=== PATIENT | female | born 1940 | race Caucasian/White ===

== ENCOUNTER 2017-12-29 04:13 | Inpatient (IN) | payer OTHER ==
[2017-12-28 15:19] LABS: BASOPHILS # (AUTO) 0.05 x10^3/uL (0-0.1); BASOPHILS % (AUTO) 1 % (0-1); EOSINOPHILS % (AUTO) 2 % (1-7); LYMPHOCYTES # (AUTO) 2.49 x10^3/uL (1-3.4); LYMPHOCYTES % (AUTO) 23 % (22-44); MD NO; MEAN CORPUSCULAR HEMOGLOBIN 27.5 pg (27.0-34.8); MEAN CORPUSCULAR HGB CONC 32.7 g/dL (32.4-35.8); MEAN CORPUSCULAR VOLUME 83.9 fL (80-100); MEAN PLATELET VOLUME 8.8 fL (7.4-10.4); MONOCYTES # (AUTO) 0.61 x10^3/uL (0.2-0.8); MONOCYTES % (AUTO) 6 % (2-9); NEUTROPHILS # (AUTO) 7.53 x10^3/uL (1.8-6.8); NEUTROPHILS % (AUTO) 69 % (42-75); PLATELET COUNT 303 x10^3/uL (130-400); RED BLOOD COUNT 4.57 x10^6/uL (3.82-5.3); RED CELL DISTRIBUTION WIDTH 14.7 % (9.6-15.2)
[2017-12-28 15:21] LABS: MICROSCOPIC INDICATED
[2017-12-28 15:31] LABS: INTERNATIONAL NORMALIZED RATIO 0.98 (0.93-1.1); PROTHROMBIN TIME 10.1 Seconds (9.6-11.5)
[2017-12-28 15:35] LABS: ALANINE AMINOTRANSFERASE 17 U/L (12-78); ALBUMIN 3.8 g/dL (3.4-5.0); ANION GAP 12 mmol/L (5-15); CALCIUM 9.2 mg/dL (8.5-10.1); CHLORIDE 109 mmol/L (98-107); CREATININE 1.14 mg/dL (0.55-1.02)
[2017-12-28 15:38] LABS: ALKALINE PHOSPHATASE 78 U/L (45-117); BILIRUBIN,TOTAL 0.3 mg/dL (0.2-1.0); TOTAL PROTEIN 7.4 g/dL (6.4-8.2)
[2017-12-28 15:54] LABS: HEMOGLOBIN A1C 9.8 % (4.2-6.3)
[~2017-12-29] VITALS: Ht 170.2 cm; Wt 87.9 kg
[~2017-12-29 04:13] MED LIST: AMLO10TA2 PO; ASPI-496 PO; DOXA2TAB9 PO; FERR325T18 PO; FLUO10TA PO; GINK60TA4 PO; GLIP-164 PO; INSU100I13 SC; METF500T4 PO; OMEG1CAP30 PO; OMEP-110 PO; ROSU40TA PO; VALS1TAB30 PO; VIT1TABL32 PO
[2017-12-29 04:48] VITALS: BP 162/73
[2017-12-29 04:49] VITALS: BP 156/75
[2017-12-29] MEDS ORDERED: DO NOT GIVE MC SCH (05:00)
[2017-12-29] MEDS ORDERED: CHLORHEXIDINE 15 ML BOTTLE MM SCH (05:00)
[2017-12-29] MEDS: MUPIROCIN OINT 2%, 22GM TP SCH ×2 (05:26→17:39)
[2017-12-29] MEDS: INSULIN LISPRO 100 UNITS/ML, PEN SQ-INSULIN SCH ×4 (05:31→21:00)
[2017-12-29] MEDS ORDERED: MIDAZOLAM 10MG/2 ML ONE (06:34)
[2017-12-29] MEDS ORDERED: FENTANYL PF 1000 MCG/20ML ONE (06:40)
[2017-12-29] MEDS ORDERED: PAPAVERINE 30 MG/ML, 2ML ONE (07:21)
[2017-12-29] MEDS ORDERED: HEPARIN 1,000 UNITS/ML, 10ML ONE (07:22)
[2017-12-29] MEDS ORDERED: CEFUROXIME 1.5 GM in SODIUM CHLORIDE 0.9% 50 ML IVPB PRN (07:30)
[2017-12-29] MEDS ORDERED: PHENYLEPHRINE 10 MG in SODIUM CHLORIDE 0.9% 249 ML IV PRN ×2 (07:30→10:28)
[2017-12-29] MEDS ORDERED: REGULAR INSULIN 62.5 UNITS in SODIUM CHLORIDE 0.9% 249.375 ML IV PRN ×2 (07:30→10:28)
[2017-12-29] MEDS ORDERED: DEXMEDETOMIDINE 200 MCG in SODIUM CHLORIDE 0.9% 48 ML IV SCH (07:30)
[2017-12-29] MEDS ORDERED: VANCOMYCIN 1,200 MG in SODIUM CHLORIDE 0.9% 250 ML IV PRN (07:30)
[2017-12-29] MEDS ORDERED: ALBUMIN HUMAN 5% 500 ML IV PRN (07:30)
[2017-12-29] MEDS ORDERED: MANNITOL PMX 20% 500 ML IVPB PRN (07:30)
[2017-12-29] MEDS ORDERED: POTASSIUM CHLORIDE 80 MEQ, SODIUM BICARBONATE 8.4% 10 MEQ, MAGNESIUM SULFATE 0.5 GM, LI... IV PRN (07:30)
[2017-12-29] MEDS ORDERED: EPINEPHRINE 2 MG in SODIUM CHLORIDE 0.9% 248 ML IV SCH (07:30)
[2017-12-29] MEDS ORDERED: PAPAVERINE 30 MG/ML, 2ML IVPush ONE (08:39)
[2017-12-29] MEDS: DOCUSATE 100 MG CAPSULE PO SCH ×2 (09:00→21:11)
[2017-12-29] MEDS ORDERED: PROPOFOL 10 MG/ML, 20ML ONE (09:04)
[2017-12-29] MEDS ORDERED: ROCURONIUM 10 MG/ML,10ML ONE (09:04)
[2017-12-29] MEDS ORDERED: PROTAMINE SULFATE 10 MG/ML, 25ML ONE ×2 (09:05)
[2017-12-29] MEDS ORDERED: VASOPRESSIN 20 UNIT/ML, 1ML ONE (09:05)
[2017-12-29] MEDS ORDERED: CALCIUM CHLORIDE 10%, 10ML SYR ONE (10:23)
[2017-12-29] MEDS ORDERED: NITROGLYCERIN/D5W PMX 240 ML IV PRN (10:28)
[2017-12-29] MEDS ORDERED: DEXMEDETOMIDINE 200 MCG in SODIUM CHLORIDE 0.9% 48 ML IV PRN (10:28)
[2017-12-29] MEDS ORDERED: SODIUM CHLORIDE 0.9% 1,000 ML IV PRN (10:28)
[2017-12-29] MEDS ORDERED: DOBUTAMINE 250 MG in SODIUM CHLORIDE 0.9% 230 ML IV PRN (10:28)
[2017-12-29] MEDS ORDERED: VASOPRESSIN 50 UNIT in SODIUM CHLORIDE 0.9% 250 ML IV PRN (10:28)
[2017-12-29] MEDS ORDERED: BISACODYL 10 MG SUPP PR PRN (10:30)
[2017-12-29] MEDS ORDERED: BISACODYL 5 MG EC TABLET PO PRN (10:30)
[2017-12-29] MEDS ORDERED: ACETAMINOPHEN 650 MG SUPP PR PRN (10:30)
[2017-12-29] MEDS: KSCALE TO 4.5 IV SCH ×3 (10:30→23:00)
[2017-12-29] MEDS ORDERED: EPINEPHRINE 2 MG in SODIUM CHLORIDE 0.9% 248 ML IV PRN (10:30)
[2017-12-29] MEDS ORDERED: PROCHLORPERAZINE 5 MG/ML, 2ML IVPush PRN (10:30)
[2017-12-29] MEDS ORDERED: MIDAZOLAM 1 MG/ML, 5ML IVPush PRN (10:30)
[2017-12-29] MEDS ORDERED: LACTATED RINGERS 1,000 ML IV PRN (10:30)
[2017-12-29] MEDS ORDERED: INSULIN REGULAR 100 UNITS/ML, 3ML VIAL IVPush PRN (10:30)
[2017-12-29] MEDS: CHLORHEXIDINE 15 ML BOTTLE MM SCH ×2 (10:30→21:07)
[2017-12-29] MEDS ORDERED: DEXTROSE 50%, 50ML SYRINGE IVPush PRN (10:30)
[2017-12-29] MEDS ORDERED: GLUCAGON 1 MG IM PRN (10:30)
[2017-12-29] MEDS ORDERED: morphine SULFATE 10 MG/ML, 1ML IVPush PRN (10:30)
[2017-12-29 11:12] LABS: GLUCOSE BY BLOOD GAS ANALYZER 222 mg/dL (70-110); HEMOGLOBIN BY BLOOD GAS ANALYZ 9.4 g/dL (14.0-18.0); POTASSIUM BY BLOOD GAS ANALYZR 3.7 mmol/L (3.6-5.5)
[2017-12-29 11:20] LABS: INTERNATIONAL NORMALIZED RATIO 1.22 (0.93-1.1); PROTHROMBIN TIME 12.5 Seconds (9.6-11.5)
[2017-12-29] MEDS: SODIUM BICARB 8.4%, 50ML SYRINGE IV PRN ×2 (11:34→13:22)
[2017-12-29] MEDS ORDERED: POTASSIUM CHLORIDE PMX 100 ML IV ONE (12:30)
[2017-12-29] MEDS ORDERED: MORPHINE SULFATE 4 MG/ML, 1ML ONE (12:53)
[2017-12-29 13:15] LABS: FIO2 100 %
[2017-12-29] MEDS ORDERED: methylPREDNISolone SOD SUCC 125 MG/2 ML ONE (14:54)
[2017-12-29] MEDS ORDERED: LIDOCAINE 2% 100MG/5ML SYRINGE ONE (14:54)
[2017-12-29] MEDS ORDERED: SODIUM BICARB 8.4%, 50ML SYRINGE ONE (14:54)
[2017-12-29] MEDS ORDERED: HEPARIN 1,000 UNITS/ML, 30ML ONE (14:55)
[2017-12-29] MEDS ORDERED: ALBUMIN HUMAN 25% 50 ML ONE (14:55)
[2017-12-29] MEDS: OXYcodone IR 5MG TABLET PO PRN ×2 (17:20→21:15)
[2017-12-29] MEDS: ONDANSETRON 2MG/ML, 2ML IVPush PRN (17:20)
[2017-12-29] MEDS: CEFUROXIME 1.5 GM in SODIUM CHLORIDE 0.9% 50 ML IVPB SCH (17:26)
[2017-12-29] MEDS: SODIUM CHLORIDE FLUSH 10ML SYR IVF SCH ×3 (18:22→21:07)
[2017-12-29] MEDS ORDERED: VANCOMYCIN 1,200 MG in SODIUM CHLORIDE 0.9% 250 ML IVPB ONE (20:00)
[2017-12-29] MEDS: MUPIROCIN OINT 2%, 22GM NAS SCH (21:07)
[2017-12-30] MEDS: OXYcodone IR 5MG TABLET PO PRN (03:16)
[2017-12-30 04:41] LABS: BASOPHILS % (AUTO) 0 % (0-1); EOSINOPHILS % (AUTO) 0 % (1-7); LYMPHOCYTES # (AUTO) 0.81 x10^3/uL (1-3.4); LYMPHOCYTES % (AUTO) 5 % (22-44); MD NO; MEAN CORPUSCULAR HEMOGLOBIN 27.6 pg (27.0-34.8); MEAN CORPUSCULAR HGB CONC 32.7 g/dL (32.4-35.8); MEAN CORPUSCULAR VOLUME 84.3 fL (80-100); MEAN PLATELET VOLUME 9.6 fL (7.4-10.4); MONOCYTES # (AUTO) 1.25 x10^3/uL (0.2-0.8); MONOCYTES % (AUTO) 7 % (2-9); NEUTROPHILS # (AUTO) 14.77 x10^3/uL (1.8-6.8); NEUTROPHILS % (AUTO) 88 % (42-75); PLATELET COUNT 193 x10^3/uL (130-400); RED BLOOD COUNT 3.31 x10^6/uL (3.82-5.3)
[2017-12-30 04:43] LABS: INTERNATIONAL NORMALIZED RATIO 1.05 (0.93-1.1); PROTHROMBIN TIME 10.8 Seconds (9.6-11.5)
[2017-12-30 04:48] LABS: ALBUMIN 3.1 g/dL (3.4-5.0); ANION GAP 10 mmol/L (5-15); CALCIUM 8.7 mg/dL (8.5-10.1); CHLORIDE 109 mmol/L (98-107)
[2017-12-30 04:49] LABS: CREATININE 1.16 mg/dL (0.55-1.02)
[2017-12-30] MEDS: KSCALE TO 4.5 IV SCH (05:00)
[2017-12-30] MEDS: INSULIN LISPRO 100 UNITS/ML, PEN SQ-INSULIN SCH ×6 (06:20→21:22)
[2017-12-30] MEDS: CEFUROXIME 1.5 GM in SODIUM CHLORIDE 0.9% 50 ML IVPB SCH (06:21)
[2017-12-30] MEDS: MUPIROCIN OINT 2%, 22GM TP SCH ×2 (06:21→19:13)
[2017-12-30] MEDS: POTASSIUM CHLORIDE 10 MEQ TABLET.ER PO SCH ×2 (08:00→17:20)
[2017-12-30] MEDS: SODIUM CHLORIDE FLUSH 10ML SYR IVF SCH ×4 (08:17→19:13)
[2017-12-30] MEDS: HYDROcodone/APAP 5/325 TABLET PO PRN (08:17)
[2017-12-30] MEDS: FUROSEMIDE 20 MG/2 ML IV SCH ×2 (08:17→17:20)
[2017-12-30] MEDS: MUPIROCIN OINT 2%, 22GM NAS SCH ×2 (08:17→19:13)
[2017-12-30] MEDS: CHLORHEXIDINE 15 ML BOTTLE MM SCH ×2 (08:18→23:09)
[2017-12-30] MEDS: WARFARIN BIOPROSTHETIC VALVE PROTOCOL 2-3 XX SCH (09:00)
[2017-12-30] MEDS: DOCUSATE 100 MG CAPSULE PO SCH ×3 (09:00→19:15)
[2017-12-30] MEDS: ASPIRIN 81 MG TABLET EC PO SCH (09:30)
[2017-12-30] MEDS: AMLODIPINE 5 MG TABLET PO SCH (10:23)
[2017-12-30] MEDS: CEFTRIAXONE PMX 1GM/50ML 50 ML IV SCH (10:23)
[2017-12-30] MEDS: INSULIN GLARGINE 100 UNITS/ML, PEN SQ-INSULIN SCH ×2 (10:24→21:21)
[2017-12-30 12:47] LABS: MICROSCOPIC INDICATED
[2017-12-30] MEDS: HYDROcodone/APAP 10/325 MG TABLET PO PRN ×2 (13:22→19:13)
[2017-12-30] MEDS ORDERED: WARFARIN 5 MG TABLET PO-COUM SCH (18:00)
[2017-12-31] MEDS: HYDROcodone/APAP 10/325 MG TABLET PO PRN ×2 (00:21→20:53)
[2017-12-31 04:35] LABS: MEAN CORPUSCULAR HEMOGLOBIN 27.8 pg (27.0-34.8); MEAN CORPUSCULAR HGB CONC 32.9 g/dL (32.4-35.8); MEAN CORPUSCULAR VOLUME 84.4 fL (80-100); MEAN PLATELET VOLUME 9.1 fL (7.4-10.4); PLATELET COUNT 221 x10^3/uL (130-400); RED BLOOD COUNT 3.44 x10^6/uL (3.82-5.3); RED CELL DISTRIBUTION WIDTH 15.8 % (9.6-15.2)
[2017-12-31 04:40] LABS: INTERNATIONAL NORMALIZED RATIO 0.97 (0.93-1.1)
[2017-12-31 04:46] LABS: ANION GAP 10 mmol/L (5-15); CALCIUM 8.5 mg/dL (8.5-10.1); CHLORIDE 101 mmol/L (98-107); CREATININE 1.38 mg/dL (0.55-1.02)
[2017-12-31 04:58] LABS: BASOPHILS # (AUTO) 0.04 x10^3/uL (0-0.1); BASOPHILS % (AUTO) 0 % (0-1); EOSINOPHILS % (AUTO) 0 % (1-7); LYMPHOCYTES # (AUTO) 1.79 x10^3/uL (1-3.4); LYMPHOCYTES % (AUTO) 9 % (22-44); MD SCAN; MONOCYTES # (AUTO) 1.56 x10^3/uL (0.2-0.8); MONOCYTES % (AUTO) 8 % (2-9); NEUTROPHILS # (AUTO) 15.59 x10^3/uL (1.8-6.8); NEUTROPHILS % (AUTO) 82 % (42-75)
[2017-12-31] MEDS: HYDROcodone/APAP 5/325 TABLET PO PRN ×4 (05:21→17:32)
[2017-12-31] MEDS: MUPIROCIN OINT 2%, 22GM TP SCH (05:21)
[2017-12-31] MEDS: INSULIN LISPRO 100 UNITS/ML, PEN SQ-INSULIN SCH ×4 (08:21→21:02)
[2017-12-31] MEDS: WARFARIN BIOPROSTHETIC VALVE PROTOCOL 2-3 XX SCH (09:00)
[2017-12-31] MEDS: ASPIRIN 81 MG TABLET EC PO SCH (09:42)
[2017-12-31] MEDS: POTASSIUM CHLORIDE 10 MEQ TABLET.ER PO SCH ×2 (09:42→17:45)
[2017-12-31] MEDS: DOCUSATE 100 MG CAPSULE PO SCH ×2 (09:42→20:52)
[2017-12-31] MEDS: MUPIROCIN OINT 2%, 22GM NAS SCH ×2 (09:43→20:53)
[2017-12-31] MEDS: AMLODIPINE 5 MG TABLET PO SCH (09:43)
[2017-12-31] MEDS: CEFTRIAXONE PMX 1GM/50ML 50 ML IV SCH (09:43)
[2017-12-31] MEDS: SODIUM CHLORIDE FLUSH 10ML SYR IVF SCH ×2 (09:44→20:53)
[2017-12-31] MEDS: FUROSEMIDE 20 MG/2 ML IV SCH ×2 (09:45→17:31)
[2017-12-31] MEDS: INSULIN GLARGINE 100 UNITS/ML, PEN SQ-INSULIN SCH ×2 (09:46→21:02)
[2017-12-31] MEDS: CHLORHEXIDINE 15 ML BOTTLE MM SCH ×2 (12:06→22:30)
[2017-12-31] MEDS: ACETAMINOPHEN 325 MG TABLET PO PRN (17:32)
[2017-12-31] MEDS ORDERED: WARFARIN 5 MG TABLET PO-COUM ONE (18:00)
[2018-01-01 04:00] VITALS: BP 131/40
[2018-01-01] MEDS: HYDROcodone/APAP 10/325 MG TABLET PO PRN ×2 (04:19→21:13)
[2018-01-01 05:43] LABS: BASOPHILS # (AUTO) 0.08 x10^3/uL (0-0.1); BASOPHILS % (AUTO) 1 % (0-1); EOSINOPHILS # (AUTO) 0.07 x10^3/uL (0-0.4); EOSINOPHILS % (AUTO) 1 % (1-7); LYMPHOCYTES # (AUTO) 1.24 x10^3/uL (1-3.4); LYMPHOCYTES % (AUTO) 10 % (22-44); MD NO; MEAN CORPUSCULAR HGB CONC 33.4 g/dL (32.4-35.8); MEAN CORPUSCULAR VOLUME 83.7 fL (80-100); MEAN PLATELET VOLUME 9.2 fL (7.4-10.4); MONOCYTES # (AUTO) 1.19 x10^3/uL (0.2-0.8); MONOCYTES % (AUTO) 10 % (2-9); NEUTROPHILS % (AUTO) 79 % (42-75); PLATELET COUNT 201 x10^3/uL (130-400); RED BLOOD COUNT 3.16 x10^6/uL (3.82-5.3); RED CELL DISTRIBUTION WIDTH 15.3 % (9.6-15.2)
[2018-01-01 05:52] LABS: CHLORIDE 103 mmol/L (98-107)
[2018-01-01 05:58] LABS: INTERNATIONAL NORMALIZED RATIO 1.17 (0.93-1.1)
[2018-01-01 06:11] LABS: ANION GAP 8 mmol/L (5-15); CALCIUM 8.8 mg/dL (8.5-10.1); CREATININE 0.95 mg/dL (0.55-1.02)
[2018-01-01] MEDS: INSULIN LISPRO 100 UNITS/ML, PEN SQ-INSULIN SCH ×4 (07:00→21:23)
[2018-01-01] MEDS: AMIODARONE 900 MG in DEXTROSE 5% 482 ML IV PRN (08:58)
[2018-01-01] MEDS: INSULIN GLARGINE 100 UNITS/ML, PEN SQ-INSULIN SCH ×4 (09:00→21:24)
[2018-01-01] MEDS ORDERED: AMIODARONE 150 MG in DEXTROSE 5% 100 ML IV ONE (09:00)
[2018-01-01] MEDS ORDERED: FILTER 0.22 MICRON FOR AMIODARONE IV PRN (09:00)
[2018-01-01] MEDS ORDERED: AMLODIPINE 5 MG TABLET PO SCH (09:00)
[2018-01-01] MEDS ORDERED: GLIPizide ER 5 MG TABLET PO SCH (09:00)
[2018-01-01] MEDS: WARFARIN BIOPROSTHETIC VALVE PROTOCOL 2-3 XX SCH (09:00)
[2018-01-01] MEDS ORDERED: ASPIRIN 81 MG TABLET EC PO SCH (09:00)
[2018-01-01] MEDS: VALSARTAN 80 MG TABLET PO SCH (09:03)
[2018-01-01] MEDS: DOCUSATE 100 MG CAPSULE PO SCH ×2 (09:03→21:13)
[2018-01-01] MEDS: OMEPRAZOLE 20 MG CAPSULE.DR PO SCH ×2 (09:03→21:13)
[2018-01-01] MEDS: POTASSIUM CHLORIDE 10 MEQ TABLET.ER PO SCH (09:04)
[2018-01-01] MEDS: ASPIRIN 81 MG TABLET EC PO SCH (09:04)
[2018-01-01] MEDS: CHLORHEXIDINE 15 ML BOTTLE MM SCH ×2 (09:04→22:30)
[2018-01-01] MEDS: MUPIROCIN OINT 2%, 22GM NAS SCH ×2 (09:04→21:13)
[2018-01-01] MEDS: FUROSEMIDE 20 MG/2 ML IV SCH (09:05)
[2018-01-01] MEDS: CEFTRIAXONE PMX 1GM/50ML 50 ML IV SCH (09:05)
[2018-01-01] MEDS: AMLODIPINE 5 MG TABLET PO SCH (09:05)
[2018-01-01] MEDS: FERROUS SULFATE 325 MG TABLET PO SCH (09:05)
[2018-01-01] MEDS: DOXAZOSIN 2MG TABLET PO SCH (09:05)
[2018-01-01] MEDS: SODIUM CHLORIDE FLUSH 10ML SYR IVF SCH ×2 (09:06→21:13)
[2018-01-01] MEDS: HYDROcodone/APAP 5/325 TABLET PO PRN ×2 (09:23→16:51)
[2018-01-01] MEDS: FLUOXETINE 10 MG CAP PO SCH (11:26)
[2018-01-01] MEDS: metFORMIN 500 MG TABLET PO SCH ×2 (11:26→21:13)
[2018-01-01] MEDS ORDERED: WARFARIN 7.5 MG TABLET PO-COUM ONE (18:00)
[2018-01-01] MEDS: TEMPLATE NON-FORMULARY MED. (Rosuvastatin Calcium** (Crestor**) 40 MG) PO SCH (21:00)
[2018-01-02 04:00] VITALS: BP 114/47
[2018-01-02 04:19] LABS: BASOPHILS # (AUTO) 0.12 x10^3/uL (0-0.1); BASOPHILS % (AUTO) 1 % (0-1); EOSINOPHILS # (AUTO) 0.17 x10^3/uL (0-0.4); EOSINOPHILS % (AUTO) 2 % (1-7); LYMPHOCYTES % (AUTO) 11 % (22-44); MD NO; MEAN CORPUSCULAR HEMOGLOBIN 27.3 pg (27.0-34.8); MEAN CORPUSCULAR HGB CONC 32.9 g/dL (32.4-35.8); MEAN CORPUSCULAR VOLUME 83.1 fL (80-100); MEAN PLATELET VOLUME 9.1 fL (7.4-10.4); MONOCYTES # (AUTO) 1.05 x10^3/uL (0.2-0.8); MONOCYTES % (AUTO) 9 % (2-9); NEUTROPHILS # (AUTO) 8.97 x10^3/uL (1.8-6.8); NEUTROPHILS % (AUTO) 77 % (42-75); PLATELET COUNT 224 x10^3/uL (130-400); RED BLOOD COUNT 3.05 x10^6/uL (3.82-5.3); RED CELL DISTRIBUTION WIDTH 14.8 % (9.6-15.2)
[2018-01-02 04:27] LABS: INTERNATIONAL NORMALIZED RATIO 1.24 (0.93-1.1); PROTHROMBIN TIME 12.7 Seconds (9.6-11.5)
[2018-01-02 04:31] LABS: ANION GAP 8 mmol/L (5-15); CALCIUM 8.3 mg/dL (8.5-10.1); CHLORIDE 102 mmol/L (98-107); CREATININE 1.19 mg/dL (0.55-1.02)
[2018-01-02] MEDS: HYDROcodone/APAP 5/325 TABLET PO PRN (07:23)
[2018-01-02] MEDS: INSULIN LISPRO 100 UNITS/ML, PEN SQ-INSULIN SCH ×4 (07:33→21:00)
[2018-01-02] MEDS: AMIODARONE 900 MG in DEXTROSE 5% 482 ML IV PRN (07:46)
[2018-01-02] MEDS ORDERED: AMIODARONE 150 MG in DEXTROSE 5% 100 ML IV ONE (08:00)
[2018-01-02] MEDS: WARFARIN BIOPROSTHETIC VALVE PROTOCOL 2-3 XX SCH (09:00)
[2018-01-02] MEDS: VALSARTAN 80 MG TABLET PO SCH (09:00)
[2018-01-02] MEDS: DOCUSATE 100 MG CAPSULE PO SCH ×2 (09:57→21:15)
[2018-01-02] MEDS: FERROUS SULFATE 325 MG TABLET PO SCH (09:57)
[2018-01-02] MEDS: POTASSIUM CHLORIDE 10 MEQ TABLET.ER PO SCH (09:57)
[2018-01-02] MEDS: FUROSEMIDE 20 MG/2 ML IV SCH (09:58)
[2018-01-02] MEDS: OMEPRAZOLE 20 MG CAPSULE.DR PO SCH ×2 (09:58→21:15)
[2018-01-02] MEDS: DOXAZOSIN 2MG TABLET PO SCH (09:58)
[2018-01-02] MEDS: metFORMIN 500 MG TABLET PO SCH ×2 (09:58→21:15)
[2018-01-02] MEDS: CEFTRIAXONE PMX 1GM/50ML 50 ML IV SCH (10:00)
[2018-01-02] MEDS: MUPIROCIN OINT 2%, 22GM NAS SCH ×2 (10:00→21:15)
[2018-01-02] MEDS: INSULIN GLARGINE 100 UNITS/ML, PEN SQ-INSULIN SCH ×3 (10:01→21:24)
[2018-01-02] MEDS: SODIUM CHLORIDE FLUSH 10ML SYR IVF SCH ×2 (10:01→21:15)
[2018-01-02] MEDS: ASPIRIN 81 MG TABLET EC PO SCH (10:14)
[2018-01-02] MEDS: CHLORHEXIDINE 15 ML BOTTLE MM SCH ×2 (10:30→22:54)
[2018-01-02] MEDS: ONDANSETRON 2MG/ML, 2ML IVPush PRN (11:04)
[2018-01-02] MEDS ORDERED: WARFARIN 10 MG TABLET PO-COUM ONE (18:00)
[2018-01-02] MEDS: TEMPLATE NON-FORMULARY MED. (Rosuvastatin Calcium** (Crestor**) 40 MG) PO SCH (21:00)
[2018-01-02] MEDS: HYDROcodone/APAP 10/325 MG TABLET PO PRN (21:15)
[2018-01-02] MEDS: FLUOXETINE 10 MG CAP PO SCH (21:17)
[2018-01-03 04:00] VITALS: BP 144/47
[2018-01-03 04:51] LABS: INTERNATIONAL NORMALIZED RATIO 1.94 (0.93-1.1); PROTHROMBIN TIME 19.7 Seconds (9.6-11.5)
[2018-01-03 04:55] LABS: MEAN CORPUSCULAR HEMOGLOBIN 27.8 pg (27.0-34.8); MEAN CORPUSCULAR HGB CONC 33.6 g/dL (32.4-35.8); MEAN CORPUSCULAR VOLUME 82.8 fL (80-100); MEAN PLATELET VOLUME 9.2 fL (7.4-10.4); PLATELET COUNT 266 x10^3/uL (130-400); RED BLOOD COUNT 3.06 x10^6/uL (3.82-5.3); RED CELL DISTRIBUTION WIDTH 14.8 % (9.6-15.2)
[2018-01-03 04:56] LABS: ANION GAP 10 mmol/L (5-15); CALCIUM 8.1 mg/dL (8.5-10.1); CHLORIDE 99 mmol/L (98-107)
[2018-01-03 04:58] LABS: CREATININE 1.23 mg/dL (0.55-1.02)
[2018-01-03 06:04] LABS: BASOPHILS # (AUTO) 0.04 x10^3/uL (0-0.1); BASOPHILS % (AUTO) 0 % (0-1); EOSINOPHILS # (AUTO) 0.28 x10^3/uL (0-0.4); EOSINOPHILS % (AUTO) 2 % (1-7); LYMPHOCYTES # (AUTO) 1.32 x10^3/uL (1-3.4); LYMPHOCYTES % (AUTO) 11 % (22-44); MD SCAN; MONOCYTES # (AUTO) 1.18 x10^3/uL (0.2-0.8); MONOCYTES % (AUTO) 10 % (2-9); NEUTROPHILS % (AUTO) 76 % (42-75)
[2018-01-03] MEDS: INSULIN LISPRO 100 UNITS/ML, PEN SQ-INSULIN SCH ×4 (07:00→21:00)
[2018-01-03] MEDS: ASPIRIN 81 MG TABLET EC PO SCH (08:45)
[2018-01-03] MEDS: FLUOXETINE 10 MG CAP PO SCH (08:45)
[2018-01-03] MEDS: OMEPRAZOLE 20 MG CAPSULE.DR PO SCH ×2 (08:45→21:38)
[2018-01-03] MEDS: metFORMIN 500 MG TABLET PO SCH ×2 (08:45→21:38)
[2018-01-03] MEDS: HYDROcodone/APAP 5/325 TABLET PO PRN (08:45)
[2018-01-03] MEDS: FERROUS SULFATE 325 MG TABLET PO SCH (08:46)
[2018-01-03] MEDS: VALSARTAN 80 MG TABLET PO SCH (08:46)
[2018-01-03] MEDS: POTASSIUM CHLORIDE 10 MEQ TABLET.ER PO SCH (08:46)
[2018-01-03] MEDS: AMLODIPINE 5 MG TABLET PO SCH (08:46)
[2018-01-03] MEDS: DOCUSATE 100 MG CAPSULE PO SCH ×2 (08:46→21:38)
[2018-01-03] MEDS: FUROSEMIDE 20 MG/2 ML IV SCH (08:47)
[2018-01-03] MEDS: DOXAZOSIN 2MG TABLET PO SCH (08:47)
[2018-01-03] MEDS: SODIUM CHLORIDE FLUSH 10ML SYR IVF SCH ×2 (08:47→21:41)
[2018-01-03] MEDS: MUPIROCIN OINT 2%, 22GM NAS SCH (08:48)
[2018-01-03] MEDS: WARFARIN BIOPROSTHETIC VALVE PROTOCOL 2-3 XX SCH (09:00)
[2018-01-03] MEDS: INSULIN GLARGINE 100 UNITS/ML, PEN SQ-INSULIN SCH ×3 (09:00→23:35)
[2018-01-03] MEDS: ONDANSETRON 2MG/ML, 2ML IVPush PRN (10:04)
[2018-01-03] MEDS: CEFTRIAXONE PMX 1GM/50ML 50 ML IV SCH (10:12)
[2018-01-03] MEDS ORDERED: SODIUM CHLORIDE 0.9%, 500ML IVBOLUS ONE (11:00)
[2018-01-03] MEDS ORDERED: SODIUM CHLORIDE 0.9% 1,000 ML IV SCH (14:50)
[2018-01-03] MEDS ORDERED: CEFAZOLIN PMX 1GM/50ML 50 ML IVPB ONE (15:00)
[2018-01-03] MEDS: ACETAMINOPHEN 325 MG TABLET PO PRN (16:57)
[2018-01-03] MEDS ORDERED: WARFARIN 7.5 MG TABLET PO-COUM ONE (18:00)
[2018-01-03] MEDS: TEMPLATE NON-FORMULARY MED. (Rosuvastatin Calcium** (Crestor**) 40 MG) PO SCH (21:00)
[2018-01-03] MEDS ORDERED: AMIODARONE 150 MG in DEXTROSE 5% 100 ML IV ONE (21:04)
[2018-01-03] MEDS ORDERED: FILTER 0.22 MICRON FOR AMIODARONE IV PRN (21:30)
[2018-01-03] MEDS ORDERED: AMIODARONE 50 MG/ML, 3ML IVPush ONE (21:30)
[2018-01-03] MEDS: DEXTROSE 4 GM TAB.CHEW PO PRN (21:37)
[2018-01-03] MEDS ORDERED: AMIODARONE 900 MG in DEXTROSE 5% 482 ML IV PRN (22:30)
[2018-01-04] MEDS: HYDROcodone/APAP 10/325 MG TABLET PO PRN (00:58)
[2018-01-04 04:40] LABS: BASOPHILS # (AUTO) 0.06 x10^3/uL (0-0.1); BASOPHILS % (AUTO) 1 % (0-1); EOSINOPHILS # (AUTO) 0.57 x10^3/uL (0-0.4); EOSINOPHILS % (AUTO) 5 % (1-7); LYMPHOCYTES % (AUTO) 9 % (22-44); MD NO; MEAN CORPUSCULAR HEMOGLOBIN 27.4 pg (27.0-34.8); MEAN CORPUSCULAR HGB CONC 33.4 g/dL (32.4-35.8); MEAN CORPUSCULAR VOLUME 82.1 fL (80-100); MEAN PLATELET VOLUME 9.1 fL (7.4-10.4); MONOCYTES # (AUTO) 1.02 x10^3/uL (0.2-0.8); MONOCYTES % (AUTO) 9 % (2-9); NEUTROPHILS # (AUTO) 8.97 x10^3/uL (1.8-6.8); NEUTROPHILS % (AUTO) 77 % (42-75); PLATELET COUNT 248 x10^3/uL (130-400); RED BLOOD COUNT 3.13 x10^6/uL (3.82-5.3); RED CELL DISTRIBUTION WIDTH 14.9 % (9.6-15.2)
[2018-01-04 04:48] LABS: INTERNATIONAL NORMALIZED RATIO 2.1 (0.93-1.1); PROTHROMBIN TIME 21.3 Seconds (9.6-11.5)
[2018-01-04 04:54] LABS: ANION GAP 9 mmol/L (5-15); CALCIUM 8.3 mg/dL (8.5-10.1); CHLORIDE 103 mmol/L (98-107)
[2018-01-04 04:55] LABS: CREATININE 1.15 mg/dL (0.55-1.02)
[2018-01-04] MEDS: DEXTROSE 4 GM TAB.CHEW PO PRN (05:12)
[2018-01-04 07:00] VITALS: BP 115/37
[2018-01-04] MEDS: INSULIN LISPRO 100 UNITS/ML, PEN SQ-INSULIN SCH ×4 (07:00→21:04)
[2018-01-04] MEDS: INSULIN GLARGINE 100 UNITS/ML, PEN SQ-INSULIN SCH ×2 (09:00→21:07)
[2018-01-04] MEDS: ONDANSETRON 2MG/ML, 2ML IVPush PRN (09:10)
[2018-01-04] MEDS: SODIUM CHLORIDE FLUSH 10ML SYR IVF SCH ×2 (09:11→21:03)
[2018-01-04] MEDS ORDERED: PHYTONADIONE 5 MG TABLET PO ONE (09:30)
[2018-01-04] MEDS: POTASSIUM CHLORIDE 10 MEQ TABLET.ER PO SCH (09:50)
[2018-01-04] MEDS: ASPIRIN 81 MG TABLET EC PO SCH (09:50)
[2018-01-04] MEDS: DOCUSATE 100 MG CAPSULE PO SCH ×2 (09:50→21:04)
[2018-01-04] MEDS: FERROUS SULFATE 325 MG TABLET PO SCH (09:50)
[2018-01-04] MEDS: FLUOXETINE 10 MG CAP PO SCH (09:51)
[2018-01-04] MEDS: DOXAZOSIN 2MG TABLET PO SCH (09:52)
[2018-01-04] MEDS: FUROSEMIDE 20 MG/2 ML IV SCH (09:53)
[2018-01-04] MEDS: AMLODIPINE 5 MG TABLET PO SCH (09:53)
[2018-01-04] MEDS: OMEPRAZOLE 20 MG CAPSULE.DR PO SCH ×2 (09:53→21:04)
[2018-01-04] MEDS: HYDROcodone/APAP 5/325 TABLET PO PRN ×3 (09:53→21:14)
[2018-01-04] MEDS: metFORMIN 500 MG TABLET PO SCH ×2 (09:54→21:04)
[2018-01-04] MEDS: VALSARTAN 80 MG TABLET PO SCH (09:54)
[2018-01-04] MEDS: CEFTRIAXONE PMX 1GM/50ML 50 ML IV SCH (10:01)
[2018-01-04] MEDS: SODIUM CHLORIDE 0.9% 1,000 ML IV SCH (16:10)
[2018-01-04] MEDS ORDERED: CEFAZOLIN PMX 1GM/50ML 50 ML IVPB ONE (16:30)
[2018-01-04] MEDS: PHYTONADIONE 5 MG TABLET PO SCH ×2 (17:27→19:20)
[2018-01-04] MEDS: TEMPLATE NON-FORMULARY MED. (Rosuvastatin Calcium** (Crestor**) 40 MG) PO SCH (21:30)
[2018-01-05 04:39] VITALS: BP 144/43
[2018-01-05 04:50] LABS: MEAN CORPUSCULAR HEMOGLOBIN 27.7 pg (27.0-34.8); MEAN CORPUSCULAR HGB CONC 33.6 g/dL (32.4-35.8); MEAN CORPUSCULAR VOLUME 82.7 fL (80-100); MEAN PLATELET VOLUME 8.8 fL (7.4-10.4); PLATELET COUNT 334 x10^3/uL (130-400); RED BLOOD COUNT 3.08 x10^6/uL (3.82-5.3); RED CELL DISTRIBUTION WIDTH 15.2 % (9.6-15.2)
[2018-01-05 04:52] LABS: INTERNATIONAL NORMALIZED RATIO 1.22 (0.93-1.1); PROTHROMBIN TIME 12.5 Seconds (9.6-11.5)
[2018-01-05 04:56] LABS: ANION GAP 7 mmol/L (5-15); CALCIUM 8.5 mg/dL (8.5-10.1); CHLORIDE 100 mmol/L (98-107); CREATININE 1.29 mg/dL (0.55-1.02)
[2018-01-05 05:45] LABS: BASOPHILS # (AUTO) 0.05 x10^3/uL (0-0.1); BASOPHILS % (AUTO) 0 % (0-1); EOSINOPHILS # (AUTO) 0.75 x10^3/uL (0-0.4); EOSINOPHILS % (AUTO) 5 % (1-7); LYMPHOCYTES % (AUTO) 8 % (22-44); MD SCAN; MONOCYTES # (AUTO) 1.29 x10^3/uL (0.2-0.8); MONOCYTES % (AUTO) 9 % (2-9); NEUTROPHILS # (AUTO) 10.88 x10^3/uL (1.8-6.8); NEUTROPHILS % (AUTO) 77 % (42-75)
[2018-01-05] MEDS: INSULIN LISPRO 100 UNITS/ML, PEN SQ-INSULIN SCH ×4 (07:00→21:29)
[2018-01-05] MEDS: FERROUS SULFATE 325 MG TABLET PO SCH (09:00)
[2018-01-05] MEDS: INSULIN GLARGINE 100 UNITS/ML, PEN SQ-INSULIN SCH ×2 (09:00→21:28)
[2018-01-05] MEDS: metFORMIN 500 MG TABLET PO SCH ×2 (09:00→21:20)
[2018-01-05] MEDS: FLUOXETINE 10 MG CAP PO SCH (09:32)
[2018-01-05] MEDS: DOXAZOSIN 2MG TABLET PO SCH (09:32)
[2018-01-05] MEDS: OMEPRAZOLE 20 MG CAPSULE.DR PO SCH ×2 (09:33→21:21)
[2018-01-05] MEDS: ASPIRIN 81 MG TABLET EC PO SCH (09:33)
[2018-01-05] MEDS: DOCUSATE 100 MG CAPSULE PO SCH ×2 (09:33→21:00)
[2018-01-05] MEDS: HYDROcodone/APAP 5/325 TABLET PO PRN ×3 (09:33→20:36)
[2018-01-05] MEDS: AMLODIPINE 5 MG TABLET PO SCH (09:33)
[2018-01-05] MEDS: CEFTRIAXONE PMX 1GM/50ML 50 ML IV SCH (09:33)
[2018-01-05] MEDS: FUROSEMIDE 20 MG/2 ML IV SCH (09:33)
[2018-01-05] MEDS: SODIUM CHLORIDE FLUSH 10ML SYR IVF SCH ×2 (09:34→21:23)
[2018-01-05] MEDS: VALSARTAN 80 MG TABLET PO SCH ×2 (09:38→21:00)
[2018-01-05] MEDS: POTASSIUM CHLORIDE 10 MEQ TABLET.ER PO SCH (09:38)
[2018-01-05] MEDS ORDERED: LIDOCAINE 2%, 20ML ONE (15:28)
[2018-01-05] MEDS ORDERED: CEFAZOLIN PMX 1GM/50ML 50 ML ONE (15:28)
[2018-01-05] MEDS ORDERED: CEFAZOLIN 1,000 MG ONE (15:28)
[2018-01-05] MEDS ORDERED: MIDAZOLAM 1 MG/ML, 2ML ONE (15:28)
[2018-01-05] MEDS ORDERED: FENTANYL PF 100 MCG/2ML ONE (15:28)
[2018-01-05] MEDS: SODIUM CHLORIDE 0.9% 1,000 ML IV SCH ×2 (16:17→16:18)
[2018-01-05] MEDS ORDERED: WARFARIN 5 MG TABLET PO-COUM ONE (18:00)
[2018-01-05] MEDS: TEMPLATE NON-FORMULARY MED. (Rosuvastatin Calcium** (Crestor**) 40 MG) PO SCH (21:00)
[2018-01-06] MEDS: HYDROcodone/APAP 5/325 TABLET PO PRN ×4 (00:21→19:00)
[2018-01-06 04:00] VITALS: BP 118/48
[2018-01-06 04:41] LABS: MEAN CORPUSCULAR HEMOGLOBIN 27.5 pg (27.0-34.8); MEAN CORPUSCULAR HGB CONC 33.1 g/dL (32.4-35.8); MEAN CORPUSCULAR VOLUME 82.9 fL (80-100); MEAN PLATELET VOLUME 8.7 fL (7.4-10.4); PLATELET COUNT 401 x10^3/uL (130-400); RED BLOOD COUNT 3.14 x10^6/uL (3.82-5.3); RED CELL DISTRIBUTION WIDTH 14.8 % (9.6-15.2)
[2018-01-06 04:47] LABS: INTERNATIONAL NORMALIZED RATIO 1.14 (0.93-1.1); PROTHROMBIN TIME 11.7 Seconds (9.6-11.5)
[2018-01-06 04:50] LABS: ANION GAP 10 mmol/L (5-15); CALCIUM 8.7 mg/dL (8.5-10.1); CHLORIDE 104 mmol/L (98-107); CREATININE 1.24 mg/dL (0.55-1.02)
[2018-01-06 05:12] LABS: BASOPHILS # (AUTO) 0.03 x10^3/uL (0-0.1); BASOPHILS % (AUTO) 0 % (0-1); EOSINOPHILS # (AUTO) 0.79 x10^3/uL (0-0.4); EOSINOPHILS % (AUTO) 5 % (1-7); LYMPHOCYTES # (AUTO) 1.17 x10^3/uL (1-3.4); LYMPHOCYTES % (AUTO) 7 % (22-44); MD SCAN; MONOCYTES # (AUTO) 1.35 x10^3/uL (0.2-0.8); MONOCYTES % (AUTO) 8 % (2-9); NEUTROPHILS # (AUTO) 13.31 x10^3/uL (1.8-6.8); NEUTROPHILS % (AUTO) 80 % (42-75)
[2018-01-06] MEDS: INSULIN LISPRO 100 UNITS/ML, PEN SQ-INSULIN SCH ×4 (07:00→20:20)
[2018-01-06] MEDS: INSULIN GLARGINE 100 UNITS/ML, PEN SQ-INSULIN SCH ×2 (08:00→20:21)
[2018-01-06] MEDS: FUROSEMIDE 20 MG/2 ML IV SCH (08:26)
[2018-01-06] MEDS: SODIUM CHLORIDE FLUSH 10ML SYR IVF SCH ×2 (08:26→20:22)
[2018-01-06] MEDS: DOXAZOSIN 2MG TABLET PO SCH (08:27)
[2018-01-06] MEDS: DOCUSATE 100 MG CAPSULE PO SCH ×2 (08:28→20:31)
[2018-01-06] MEDS: VALSARTAN 80 MG TABLET PO SCH ×2 (08:29→20:32)
[2018-01-06] MEDS: ASPIRIN 81 MG TABLET EC PO SCH (08:29)
[2018-01-06] MEDS: FERROUS SULFATE 325 MG TABLET PO SCH (08:30)
[2018-01-06] MEDS: POTASSIUM CHLORIDE 10 MEQ TABLET.ER PO SCH (08:31)
[2018-01-06] MEDS: metFORMIN 500 MG TABLET PO SCH ×2 (08:31→20:33)
[2018-01-06] MEDS: OMEPRAZOLE 20 MG CAPSULE.DR PO SCH ×2 (08:32→20:33)
[2018-01-06] MEDS: AMLODIPINE 5 MG TABLET PO SCH (08:32)
[2018-01-06] MEDS: FLUOXETINE 10 MG CAP PO SCH (08:33)
[2018-01-06] MEDS: CEFTRIAXONE PMX 1GM/50ML 50 ML IV SCH (08:46)
[2018-01-06] MEDS ORDERED: AMIODARONE 200 MG TABLET ONE (08:48)
[2018-01-06] MEDS: AMIODARONE 200 MG TABLET PO SCH ×2 (08:51→20:32)
[2018-01-06 15:21] VITALS: BP 130/67
[2018-01-06] MEDS ORDERED: WARFARIN 5 MG TABLET PO-COUM ONE (18:00)
[2018-01-06] MEDS ORDERED: CARVEDILOL 6.25 MG TABLET PO SCH (18:00)
[2018-01-06 19:55] VITALS: BP 119/70
[2018-01-06 20:00] VITALS: BP 130/69
[2018-01-06] MEDS: TEMPLATE NON-FORMULARY MED. (Rosuvastatin Calcium** (Crestor**) 40 MG) PO SCH (20:31)
[2018-01-07 00:49] VITALS: BP 149/68
[2018-01-07] MEDS: HYDROcodone/APAP 5/325 TABLET PO PRN ×3 (00:57→09:45)
[2018-01-07 05:53] LABS: BASOPHILS # (AUTO) 0.04 x10^3/uL (0-0.1); BASOPHILS % (AUTO) 0 % (0-1); EOSINOPHILS % (AUTO) 4 % (1-7); INTERNATIONAL NORMALIZED RATIO 1.26 (0.93-1.1); LYMPHOCYTES # (AUTO) 1.44 x10^3/uL (1-3.4); LYMPHOCYTES % (AUTO) 9 % (22-44); MD NO; MEAN CORPUSCULAR HEMOGLOBIN 27.4 pg (27.0-34.8); MEAN CORPUSCULAR HGB CONC 32.8 g/dL (32.4-35.8); MEAN CORPUSCULAR VOLUME 83.3 fL (80-100); MEAN PLATELET VOLUME 8.4 fL (7.4-10.4); MONOCYTES % (AUTO) 7 % (2-9); NEUTROPHILS # (AUTO) 12.14 x10^3/uL (1.8-6.8); NEUTROPHILS % (AUTO) 79 % (42-75); PLATELET COUNT 417 x10^3/uL (130-400); PROTHROMBIN TIME 12.9 Seconds (9.6-11.5); RED BLOOD COUNT 3.15 x10^6/uL (3.82-5.3); RED CELL DISTRIBUTION WIDTH 15.3 % (9.6-15.2)
[2018-01-07 06:01] LABS: CHLORIDE 100 mmol/L (98-107)
[2018-01-07 06:06] LABS: ANION GAP 10 mmol/L (5-15); CALCIUM 8.9 mg/dL (8.5-10.1); CREATININE 1.44 mg/dL (0.55-1.02)
[2018-01-07 06:54] VITALS: BP 161/71
[2018-01-07] MEDS ORDERED: FUROSEMIDE 40 MG/4 ML IV ONE (07:30)
[2018-01-07] MEDS: OMEPRAZOLE 20 MG CAPSULE.DR PO SCH ×2 (08:07→20:17)
[2018-01-07] MEDS: CEFTRIAXONE PMX 1GM/50ML 50 ML IV SCH (09:19)
[2018-01-07] MEDS: INSULIN GLARGINE 100 UNITS/ML, PEN SQ-INSULIN SCH ×2 (09:19→20:17)
[2018-01-07] MEDS: INSULIN LISPRO 100 UNITS/ML, PEN SQ-INSULIN SCH ×4 (09:20→20:18)
[2018-01-07] MEDS: metFORMIN 500 MG TABLET PO SCH ×2 (09:20→20:17)
[2018-01-07] MEDS: ASPIRIN 81 MG TABLET EC PO SCH (09:20)
[2018-01-07] MEDS: DOCUSATE 100 MG CAPSULE PO SCH ×2 (09:20→20:17)
[2018-01-07] MEDS: FERROUS SULFATE 325 MG TABLET PO SCH (09:21)
[2018-01-07] MEDS: AMIODARONE 200 MG TABLET PO SCH (09:21)
[2018-01-07] MEDS: FLUOXETINE 10 MG CAP PO SCH (09:21)
[2018-01-07] MEDS: SODIUM CHLORIDE FLUSH 10ML SYR IVF SCH ×2 (09:32→22:20)
[2018-01-07] MEDS: DOXAZOSIN 2MG TABLET PO SCH (09:32)
[2018-01-07 12:37] VITALS: BP 118/68
[2018-01-07 17:55] LABS: ANION GAP 8 mmol/L (5-15); CALCIUM 8.6 mg/dL (8.5-10.1); CHLORIDE 100 mmol/L (98-107); CREATININE 1.44 mg/dL (0.55-1.02)
[2018-01-07] MEDS ORDERED: WARFARIN 5 MG TABLET PO-COUM ONE (18:00)
[2018-01-07] MEDS: CARVEDILOL 12.5 MG TABLET PO SCH (18:05)
[2018-01-07 20:12] VITALS: BP 111/72
[2018-01-07] MEDS: TEMPLATE NON-FORMULARY MED. (Rosuvastatin Calcium** (Crestor**) 40 MG) PO SCH (20:18)
[2018-01-08 01:43] VITALS: BP 115/63
[2018-01-08] MEDS: CARVEDILOL 12.5 MG TABLET PO SCH ×2 (06:04→17:29)
[2018-01-08 06:07] VITALS: BP 104/65
[2018-01-08 06:40] VITALS: BP 144/65
[2018-01-08 06:51] LABS: MEAN CORPUSCULAR HEMOGLOBIN 27.1 pg (27.0-34.8); MEAN CORPUSCULAR HGB CONC 32.8 g/dL (32.4-35.8); MEAN CORPUSCULAR VOLUME 82.6 fL (80-100); PLATELET COUNT 499 x10^3/uL (130-400); RED BLOOD COUNT 3.26 x10^6/uL (3.82-5.3); RED CELL DISTRIBUTION WIDTH 14.9 % (9.6-15.2)
[2018-01-08 06:57] LABS: INTERNATIONAL NORMALIZED RATIO 1.51 (0.93-1.1); PROTHROMBIN TIME 15.4 Seconds (9.6-11.5)
[2018-01-08] MEDS: INSULIN LISPRO 100 UNITS/ML, PEN SQ-INSULIN SCH ×4 (07:00→21:33)
[2018-01-08 07:02] LABS: ANION GAP 12 mmol/L (5-15); CALCIUM 8.7 mg/dL (8.5-10.1); CHLORIDE 101 mmol/L (98-107)
[2018-01-08 07:38] LABS: BASOPHILS # (AUTO) 0.07 x10^3/uL (0-0.1); BASOPHILS % (AUTO) 0 % (0-1); EOSINOPHILS % (AUTO) 4 % (1-7); LYMPHOCYTES # (AUTO) 1.31 x10^3/uL (1-3.4); LYMPHOCYTES % (AUTO) 7 % (22-44); MD SCAN; MONOCYTES # (AUTO) 1.19 x10^3/uL (0.2-0.8); MONOCYTES % (AUTO) 7 % (2-9); NEUTROPHILS # (AUTO) 14.47 x10^3/uL (1.8-6.8); NEUTROPHILS % (AUTO) 82 % (42-75)
[2018-01-08] MEDS ORDERED: AMIODARONE 200 MG TABLET PO SCH (09:00)
[2018-01-08] MEDS ORDERED: FUROSEMIDE 40 MG/4 ML IV ONE (09:00)
[2018-01-08] MEDS: metFORMIN 500 MG TABLET PO SCH ×2 (09:00→21:18)
[2018-01-08] MEDS ORDERED: DOXAZOSIN 2MG TABLET PO SCH ×2 (09:00→21:00)
[2018-01-08] MEDS: DOCUSATE 100 MG CAPSULE PO SCH ×2 (09:25→21:18)
[2018-01-08] MEDS: OMEPRAZOLE 20 MG CAPSULE.DR PO SCH ×2 (09:25→21:18)
[2018-01-08] MEDS: FERROUS SULFATE 325 MG TABLET PO SCH (09:25)
[2018-01-08] MEDS: ASPIRIN 81 MG TABLET EC PO SCH (09:25)
[2018-01-08] MEDS: CEFTRIAXONE PMX 1GM/50ML 50 ML IV SCH (11:11)
[2018-01-08] MEDS: SODIUM CHLORIDE FLUSH 10ML SYR IVF SCH ×2 (11:12→21:24)
[2018-01-08] MEDS ORDERED: AMIODARONE 150 MG in DEXTROSE 5% 100 ML IV ONE (11:30)
[2018-01-08] MEDS ORDERED: AMIODARONE 50 MG/ML, 3ML IVPush ONE (11:30)
[2018-01-08 13:17] VITALS: BP 119/74
[2018-01-08] MEDS: AMIODARONE 200 MG TABLET PO SCH ×2 (15:40→21:23)
[2018-01-08 16:18] LABS: MICROSCOPIC NOT IND
[2018-01-08 16:20] LABS: CULTURE INDICATED? NO
[2018-01-08 17:37] LABS: RAPID INFLUENZA A Negative (Negative); RAPID INFLUENZA B Negative (Negative)
[2018-01-08] MEDS ORDERED: WARFARIN 7.5 MG TABLET PO-COUM ONE (18:00)
[2018-01-08 18:44] VITALS: BP 119/74
[2018-01-08] MEDS: TEMPLATE NON-FORMULARY MED. (Rosuvastatin Calcium** (Crestor**) 40 MG) PO SCH (21:00)
[2018-01-08] MEDS: FLUOXETINE 10 MG CAP PO SCH (21:18)
[2018-01-09 03:25] VITALS: BP 145/76
[2018-01-09 05:09] LABS: MEAN CORPUSCULAR HGB CONC 33.8 g/dL (32.4-35.8); MEAN CORPUSCULAR VOLUME 82.7 fL (80-100); MEAN PLATELET VOLUME 7.9 fL (7.4-10.4); PLATELET COUNT 553 x10^3/uL (130-400); RED BLOOD COUNT 3.12 x10^6/uL (3.82-5.3); RED CELL DISTRIBUTION WIDTH 15.3 % (9.6-15.2)
[2018-01-09 05:11] LABS: INTERNATIONAL NORMALIZED RATIO 1.99 (0.93-1.1); PROTHROMBIN TIME 20.2 Seconds (9.6-11.5)
[2018-01-09 05:22] LABS: CHLORIDE 103 mmol/L (98-107)
[2018-01-09 05:27] LABS: ANION GAP 11 mmol/L (5-15); CALCIUM 8.6 mg/dL (8.5-10.1); CREATININE 1.24 mg/dL (0.55-1.02)
[2018-01-09 06:04] LABS: BASOPHILS # (AUTO) 0.13 x10^3/uL (0-0.1); BASOPHILS % (AUTO) 1 % (0-1); EOSINOPHILS # (AUTO) 0.69 x10^3/uL (0-0.4); EOSINOPHILS % (AUTO) 5 % (1-7); LYMPHOCYTES # (AUTO) 1.36 x10^3/uL (1-3.4); LYMPHOCYTES % (AUTO) 10 % (22-44); MD SCAN; MONOCYTES # (AUTO) 1.18 x10^3/uL (0.2-0.8); MONOCYTES % (AUTO) 8 % (2-9); NEUTROPHILS # (AUTO) 10.82 x10^3/uL (1.8-6.8); NEUTROPHILS % (AUTO) 76 % (42-75)
[2018-01-09] MEDS: CARVEDILOL 12.5 MG TABLET PO SCH ×2 (06:23→17:19)
[2018-01-09 07:38] VITALS: BP 96/55
[2018-01-09] MEDS: INSULIN LISPRO 100 UNITS/ML, PEN SQ-INSULIN SCH ×4 (08:26→20:38)
[2018-01-09] MEDS: metFORMIN 500 MG TABLET PO SCH ×2 (08:26→20:36)
[2018-01-09] MEDS: FERROUS SULFATE 325 MG TABLET PO SCH (08:27)
[2018-01-09] MEDS: CEFTRIAXONE PMX 1GM/50ML 50 ML IV SCH (08:27)
[2018-01-09] MEDS: OMEPRAZOLE 20 MG CAPSULE.DR PO SCH ×2 (08:27→20:36)
[2018-01-09] MEDS: AMIODARONE 200 MG TABLET PO SCH ×3 (08:27→20:37)
[2018-01-09] MEDS: ASPIRIN 81 MG TABLET EC PO SCH (08:27)
[2018-01-09] MEDS: SODIUM CHLORIDE FLUSH 10ML SYR IVF SCH ×2 (08:28→20:36)
[2018-01-09] MEDS: DOCUSATE 100 MG CAPSULE PO SCH ×3 (08:28→20:38)
[2018-01-09 12:47] LABS: CLOSTRIDIUM DIFFICILE ANTIGEN NEGATIVE; CLOSTRIDIUM DIFFICILE TOXIN NEGATIVE (Negative)
[2018-01-09 16:09] VITALS: BP 119/69
[2018-01-09] MEDS ORDERED: WARFARIN 7.5 MG TABLET PO-COUM ONE (18:00)
[2018-01-09 19:05] VITALS: BP 119/56
[2018-01-09] MEDS: FLUOXETINE 10 MG CAP PO SCH (20:36)
[2018-01-09] MEDS: TEMPLATE NON-FORMULARY MED. (Rosuvastatin Calcium** (Crestor**) 40 MG) PO SCH (20:37)
[2018-01-09] MEDS: HYDROcodone/APAP 10/325 MG TABLET PO PRN (23:40)
[2018-01-10 01:04] VITALS: BP 139/68
[2018-01-10 05:24] LABS: MEAN CORPUSCULAR HEMOGLOBIN 27.5 pg (27.0-34.8); MEAN CORPUSCULAR HGB CONC 33.2 g/dL (32.4-35.8); MEAN CORPUSCULAR VOLUME 82.9 fL (80-100); MEAN PLATELET VOLUME 7.9 fL (7.4-10.4); PLATELET COUNT 539 x10^3/uL (130-400); RED BLOOD COUNT 3.03 x10^6/uL (3.82-5.3); RED CELL DISTRIBUTION WIDTH 15.4 % (9.6-15.2)
[2018-01-10 05:28] LABS: INTERNATIONAL NORMALIZED RATIO 2.99 (0.93-1.1); PROTHROMBIN TIME 30.1 Seconds (9.6-11.5)
[2018-01-10 05:39] LABS: ANION GAP 10 mmol/L (5-15); CALCIUM 8.4 mg/dL (8.5-10.1); CHLORIDE 102 mmol/L (98-107); CREATININE 1.59 mg/dL (0.55-1.02)
[2018-01-10 06:04] LABS: MD YES
[2018-01-10 06:05] LABS: <PLATELET ESTIMATE> INCREASED; <PLT MORPHOLOGY> NORMAL PLT MORPH; ANISOCYTOSIS 1+; EOS#(MANUAL) 0.15 x10^3/uL (0.0-0.4); EOS% (MANUAL) 1 % (1-7); LYMPH#(MANUAL) 1.94 x10^3/uL (1-3.4); LYMPHS% (MANUAL) 13 % (22-44); MONOS#(MANUAL) 0.89 x10^3/uL (0.3-2.7); MONOS% (MANUAL) 6 % (2-9); MYELOCYTES% (MANUAL) 2 % (0-0); SEG#(MANUAL) 11.62 x10^3/uL (1.8-6.8); SEGS% (MANUAL) 78 % (42-75)
[2018-01-10] MEDS: CARVEDILOL 12.5 MG TABLET PO SCH ×2 (06:08→17:38)
[2018-01-10 06:47] VITALS: BP 138/69
[2018-01-10] MEDS: OMEPRAZOLE 20 MG CAPSULE.DR PO SCH ×2 (08:38→20:36)
[2018-01-10] MEDS: FERROUS SULFATE 325 MG TABLET PO SCH (08:38)
[2018-01-10] MEDS: metFORMIN 500 MG TABLET PO SCH ×2 (08:39→20:36)
[2018-01-10] MEDS: SODIUM CHLORIDE FLUSH 10ML SYR IVF SCH ×2 (08:39→20:35)
[2018-01-10] MEDS: AMIODARONE 200 MG TABLET PO SCH ×2 (08:39→20:37)
[2018-01-10] MEDS: ASPIRIN 81 MG TABLET EC PO SCH (08:39)
[2018-01-10] MEDS: DOCUSATE 100 MG CAPSULE PO SCH ×2 (09:00→20:37)
[2018-01-10] MEDS: INSULIN LISPRO 100 UNITS/ML, PEN SQ-INSULIN SCH ×4 (09:04→20:40)
[2018-01-10] MEDS: CEFTRIAXONE PMX 1GM/50ML 50 ML IV SCH (09:04)
[2018-01-10] MEDS: ACETAMINOPHEN 325 MG TABLET PO PRN ×2 (11:24→20:36)
[2018-01-10 13:50] VITALS: BP 131/76
[2018-01-10 17:33] VITALS: BP 128/72
[2018-01-10] MEDS ORDERED: WARFARIN 5 MG TABLET PO-COUM ONE (18:00)
[2018-01-10 20:04] VITALS: BP 161/73
[2018-01-10] MEDS: SODIUM BICARBONATE 650 MG TABLET PO SCH (20:36)
[2018-01-10] MEDS: FLUOXETINE 10 MG CAP PO SCH (20:36)
[2018-01-10] MEDS: TEMPLATE NON-FORMULARY MED. (Rosuvastatin Calcium** (Crestor**) 40 MG) PO SCH (20:37)
[2018-01-11 01:07] VITALS: BP 168/72
[2018-01-11 04:47] LABS: MEAN CORPUSCULAR HEMOGLOBIN 27.6 pg (27.0-34.8); MEAN CORPUSCULAR HGB CONC 33.2 g/dL (32.4-35.8); MEAN CORPUSCULAR VOLUME 83.1 fL (80-100); MEAN PLATELET VOLUME 7.5 fL (7.4-10.4); PLATELET COUNT 572 x10^3/uL (130-400); RED BLOOD COUNT 3.15 x10^6/uL (3.82-5.3); RED CELL DISTRIBUTION WIDTH 15.7 % (9.6-15.2)
[2018-01-11 04:53] LABS: INTERNATIONAL NORMALIZED RATIO 4.07 (0.93-1.1); PROTHROMBIN TIME 40.8 Seconds (9.6-11.5)
[2018-01-11 05:00] LABS: ANION GAP 10 mmol/L (5-15); CALCIUM 8.5 mg/dL (8.5-10.1); CHLORIDE 102 mmol/L (98-107)
[2018-01-11 05:01] LABS: CREATININE 1.47 mg/dL (0.55-1.02)
[2018-01-11 05:54] LABS: MD YES
[2018-01-11 05:57] LABS: <PLATELET ESTIMATE> INCREASED; <PLT MORPHOLOGY> NORMAL PLT MORPH; ANISOCYTOSIS 1+; EOS#(MANUAL) 0.64 x10^3/uL (0.0-0.4); EOS% (MANUAL) 4 % (1-7); LYMPH#(MANUAL) 0.95 x10^3/uL (1-3.4); LYMPHS% (MANUAL) 6 % (22-44); MONOS#(MANUAL) 1.11 x10^3/uL (0.3-2.7); MONOS% (MANUAL) 7 % (2-9); MYELOCYTES# (MANUAL) 0.16 x10^3/uL (0-0); MYELOCYTES% (MANUAL) 1 % (0-0); SEG#(MANUAL) 13.04 x10^3/uL (1.8-6.8); SEGS% (MANUAL) 82 % (42-75)
[2018-01-11] MEDS: CARVEDILOL 12.5 MG TABLET PO SCH ×2 (06:21→17:44)
[2018-01-11] MEDS: ACETAMINOPHEN 325 MG TABLET PO PRN ×2 (06:39→21:13)
[2018-01-11 07:10] VITALS: BP 135/65
[2018-01-11] MEDS: FERROUS SULFATE 325 MG TABLET PO SCH (08:35)
[2018-01-11] MEDS: ASPIRIN 81 MG TABLET EC PO SCH (08:35)
[2018-01-11] MEDS: OMEPRAZOLE 20 MG CAPSULE.DR PO SCH ×2 (08:35→21:12)
[2018-01-11] MEDS: INSULIN LISPRO 100 UNITS/ML, PEN SQ-INSULIN SCH ×4 (08:35→21:13)
[2018-01-11] MEDS: metFORMIN 500 MG TABLET PO SCH ×2 (08:35→17:45)
[2018-01-11] MEDS: AMIODARONE 200 MG TABLET PO SCH ×2 (08:35→21:12)
[2018-01-11] MEDS: SODIUM CHLORIDE FLUSH 10ML SYR IVF SCH ×2 (08:36→21:10)
[2018-01-11] MEDS: DOCUSATE 100 MG CAPSULE PO SCH ×2 (08:36→21:00)
[2018-01-11] MEDS: SODIUM BICARBONATE 650 MG TABLET PO SCH ×2 (08:36→21:12)
[2018-01-11] MEDS: CEFTRIAXONE PMX 1GM/50ML 50 ML IV SCH (09:44)
[2018-01-11 13:53] VITALS: BP 161/69
[2018-01-11] MEDS ORDERED: WARFARIN 1 MG TABLET PO-COUM SCH (18:00)
[2018-01-11 19:03] VITALS: BP 138/67
[2018-01-11] MEDS: TEMPLATE NON-FORMULARY MED. (Rosuvastatin Calcium** (Crestor**) 40 MG) PO SCH (21:00)
[2018-01-11] MEDS: FLUOXETINE 10 MG CAP PO SCH (21:12)
[2018-01-12 00:49] VITALS: BP 157/74
[2018-01-12 05:16] LABS: MEAN CORPUSCULAR HEMOGLOBIN 27.5 pg (27.0-34.8); MEAN CORPUSCULAR HGB CONC 33.4 g/dL (32.4-35.8); MEAN CORPUSCULAR VOLUME 82.3 fL (80-100); MEAN PLATELET VOLUME 7.6 fL (7.4-10.4); PLATELET COUNT 647 x10^3/uL (130-400); RED BLOOD COUNT 3.42 x10^6/uL (3.82-5.3); RED CELL DISTRIBUTION WIDTH 15.3 % (9.6-15.2)
[2018-01-12 05:23] LABS: ANION GAP 9 mmol/L (5-15); CALCIUM 9.2 mg/dL (8.5-10.1); CHLORIDE 107 mmol/L (98-107); CREATININE 1.19 mg/dL (0.55-1.02)
[2018-01-12] MEDS: CARVEDILOL 25 MG TABLET PO SCH ×2 (05:46→17:47)
[2018-01-12] MEDS ORDERED: CARVEDILOL 12.5 MG TABLET PO SCH (06:00)
[2018-01-12 06:03] LABS: INTERNATIONAL NORMALIZED RATIO 5.03 (0.93-1.1); PROTHROMBIN TIME 50.2 Seconds (9.6-11.5)
[2018-01-12 06:09] LABS: MD YES
[2018-01-12 06:10] LABS: BAND#(MANUAL) 0.17 x10^3/uL; BANDS%(MANUAL) 1 % (0-7); BASOS#(MANUAL) 0.17 x10^3/uL (0-0.1); BASOS% (MANUAL) 1 % (0-1); LYMPH#(MANUAL) 1.74 x10^3/uL (1-3.4); LYMPHS% (MANUAL) 10 % (22-44); MONOS#(MANUAL) 0.87 x10^3/uL (0.3-2.7); MONOS% (MANUAL) 5 % (2-9)
[2018-01-12 06:11] LABS: EOS#(MANUAL) 0.87 x10^3/uL (0.0-0.4); EOS% (MANUAL) 5 % (1-7); SEG#(MANUAL) 13.57 x10^3/uL (1.8-6.8); SEGS% (MANUAL) 78 % (42-75)
[2018-01-12 06:12] LABS: <PLATELET ESTIMATE> INCREASED; <PLT MORPHOLOGY> NORMAL PLT MORPH; ANISOCYTOSIS 1+; POLYCHROMASIA 1+
[2018-01-12 08:30] VITALS: BP 138/84
[2018-01-12] MEDS: INSULIN LISPRO 100 UNITS/ML, PEN SQ-INSULIN SCH ×4 (08:47→21:26)
[2018-01-12] MEDS: SODIUM BICARBONATE 650 MG TABLET PO SCH ×2 (08:51→21:26)
[2018-01-12] MEDS: OMEPRAZOLE 20 MG CAPSULE.DR PO SCH ×2 (08:52→21:25)
[2018-01-12] MEDS: AMIODARONE 200 MG TABLET PO SCH ×2 (08:52→21:25)
[2018-01-12] MEDS: metFORMIN 500 MG TABLET PO SCH ×2 (08:53→17:47)
[2018-01-12] MEDS: FERROUS SULFATE 325 MG TABLET PO SCH (08:53)
[2018-01-12] MEDS: ASPIRIN 81 MG TABLET EC PO SCH (08:53)
[2018-01-12] MEDS: DOCUSATE 100 MG CAPSULE PO SCH ×2 (09:00→21:00)
[2018-01-12] MEDS: CEFTRIAXONE PMX 1GM/50ML 50 ML IV SCH (10:25)
[2018-01-12] MEDS: SODIUM CHLORIDE FLUSH 10ML SYR IVF SCH ×2 (10:25→21:52)
[2018-01-12 14:00] VITALS: BP 142/68
[2018-01-12 19:18] VITALS: BP 122/78
[2018-01-12] MEDS: TEMPLATE NON-FORMULARY MED. (Rosuvastatin Calcium** (Crestor**) 40 MG) PO SCH (21:00)
[2018-01-12] MEDS: FLUOXETINE 10 MG CAP PO SCH (21:25)
[2018-01-12] MEDS: ACETAMINOPHEN 325 MG TABLET PO PRN (21:32)
[2018-01-12] MEDS: INSULIN GLARGINE 100 UNITS/ML, PEN SQ-INSULIN SCH (21:56)
[2018-01-13 00:10] VITALS: BP 135/75
[2018-01-13 05:30] LABS: INTERNATIONAL NORMALIZED RATIO 3.62 (0.93-1.1); PROTHROMBIN TIME 36.4 Seconds (9.6-11.5)
[2018-01-13 05:34] LABS: ANION GAP 7 mmol/L (5-15); CALCIUM 8.8 mg/dL (8.5-10.1); CHLORIDE 107 mmol/L (98-107)
[2018-01-13 05:35] LABS: CREATININE 1.18 mg/dL (0.55-1.02); MEAN CORPUSCULAR HEMOGLOBIN 27.4 pg (27.0-34.8); MEAN CORPUSCULAR HGB CONC 33.1 g/dL (32.4-35.8); MEAN CORPUSCULAR VOLUME 82.7 fL (80-100); MEAN PLATELET VOLUME 7.7 fL (7.4-10.4); PLATELET COUNT 593 x10^3/uL (130-400); RED BLOOD COUNT 3.21 x10^6/uL (3.82-5.3); RED CELL DISTRIBUTION WIDTH 15.5 % (9.6-15.2)
[2018-01-13 05:53] VITALS: BP 136/80
[2018-01-13] MEDS: CARVEDILOL 25 MG TABLET PO SCH ×2 (05:56→17:48)
[2018-01-13 06:01] LABS: BASOPHILS # (AUTO) 0.07 x10^3/uL (0-0.1); BASOPHILS % (AUTO) 0 % (0-1); EOSINOPHILS % (AUTO) 5 % (1-7); LYMPHOCYTES # (AUTO) 2.15 x10^3/uL (1-3.4); LYMPHOCYTES % (AUTO) 12 % (22-44); MD SCAN; MONOCYTES # (AUTO) 1.12 x10^3/uL (0.2-0.8); MONOCYTES % (AUTO) 7 % (2-9); NEUTROPHILS # (AUTO) 13.16 x10^3/uL (1.8-6.8); NEUTROPHILS % (AUTO) 76 % (42-75)
[2018-01-13] MEDS: INSULIN LISPRO 100 UNITS/ML, PEN SQ-INSULIN SCH ×4 (07:00→20:18)
[2018-01-13] MEDS: DOCUSATE 100 MG CAPSULE PO SCH ×2 (09:00→20:16)
[2018-01-13 09:02] VITALS: BP 110/68
[2018-01-13] MEDS: ACETAMINOPHEN 325 MG TABLET PO PRN ×2 (09:40→20:17)
[2018-01-13] MEDS: metFORMIN 500 MG TABLET PO SCH ×2 (09:40→17:48)
[2018-01-13] MEDS: AMIODARONE 200 MG TABLET PO SCH ×2 (09:41→20:16)
[2018-01-13] MEDS: FERROUS SULFATE 325 MG TABLET PO SCH (09:41)
[2018-01-13] MEDS: SODIUM BICARBONATE 650 MG TABLET PO SCH ×2 (09:41→20:17)
[2018-01-13] MEDS: ASPIRIN 81 MG TABLET EC PO SCH (09:41)
[2018-01-13] MEDS: OMEPRAZOLE 20 MG CAPSULE.DR PO SCH ×2 (09:41→20:16)
[2018-01-13] MEDS: SODIUM CHLORIDE FLUSH 10ML SYR IVF SCH ×2 (09:42→20:16)
[2018-01-13 13:29] VITALS: BP 134/72
[2018-01-13] MEDS ORDERED: WARFARIN 3 MG TABLET PO-COUM SCH (18:00)
[2018-01-13 19:10] VITALS: BP 147/69
[2018-01-13] MEDS: FLUOXETINE 10 MG CAP PO SCH (20:16)
[2018-01-13] MEDS: INSULIN GLARGINE 100 UNITS/ML, PEN SQ-INSULIN SCH (20:19)
[2018-01-13] MEDS: TEMPLATE NON-FORMULARY MED. (Rosuvastatin Calcium** (Crestor**) 40 MG) PO SCH (21:00)
[2018-01-14 01:24] VITALS: BP 150/70
[2018-01-14 05:13] LABS: INTERNATIONAL NORMALIZED RATIO 2.57 (0.93-1.1)
[2018-01-14 05:19] LABS: ANION GAP 8 mmol/L (5-15); CALCIUM 8.5 mg/dL (8.5-10.1); CHLORIDE 107 mmol/L (98-107); CREATININE 1.49 mg/dL (0.55-1.02)
[2018-01-14 05:56] VITALS: BP 154/74
[2018-01-14] MEDS: CARVEDILOL 25 MG TABLET PO SCH (05:57)
[2018-01-14] MEDS: INSULIN LISPRO 100 UNITS/ML, PEN SQ-INSULIN SCH ×2 (07:28→11:37)
[2018-01-14 08:50] VITALS: BP 149/56
[2018-01-14] MEDS: metFORMIN 500 MG TABLET PO SCH (09:04)
[2018-01-14] MEDS: DOCUSATE 100 MG CAPSULE PO SCH (09:04)
[2018-01-14] MEDS: SODIUM BICARBONATE 650 MG TABLET PO SCH (09:04)
[2018-01-14] MEDS: ASPIRIN 81 MG TABLET EC PO SCH (09:04)
[2018-01-14] MEDS: FERROUS SULFATE 325 MG TABLET PO SCH (09:05)
[2018-01-14] MEDS: AMIODARONE 200 MG TABLET PO SCH (09:05)
[2018-01-14] MEDS: SODIUM CHLORIDE FLUSH 10ML SYR IVF SCH (09:05)
[2018-01-14] MEDS: OMEPRAZOLE 20 MG CAPSULE.DR PO SCH (09:05)
[2018-01-14] MEDS: ACETAMINOPHEN 325 MG TABLET PO PRN (09:07)
[2018-01-14] MEDS ORDERED: SODI650T PO (09:28)
[2018-01-14] MEDS ORDERED: CARV25TA12 PO (09:28)
[2018-01-14] MEDS ORDERED: DOCU-131 PO (09:28)
[2018-01-14] MEDS ORDERED: AMIO200T42 PO (09:28)
[2018-01-14] MEDS ORDERED: WARF3TAB PO-COUM (09:28)
[2018-01-14] MEDS ORDERED: INSU100V8 SQ (13:27)
[2018-01-14] MEDS ORDERED: INSU100I13 SQ (13:31)
[2018-01-14] MEDS ORDERED: HYDR-3237 PO (14:11)
[2018-01-14] MEDS ORDERED: WARFARIN 3 MG TABLET PO-COUM SCH (18:00)
== END 2018-01-14 15:42 | disposition home health service (06) | DRG 220 ==
LOC: 5SO 04:13 → CSU 07:51 → CCU 01-01 11:38 → CSU 01-01 11:39 → CCU 01-02 20:53 → 5SO 01-06 15:28
PROVIDERS: ADMIT Thoracic Surgery (Cardiothoracic Vascular Surgery); ATTEND Thoracic Surgery (Cardiothoracic Vascular Surgery)
PROC: 02RF0JZ Replacement of Aortic Valve with Synthetic Substitute, Open Approach (ICD-10-PCS; 2017-12-29)
PROC: 5A1221Z Performance of Cardiac Output, Continuous (ICD-10-PCS; 2017-12-29)
PROC: B246ZZ4 Ultrasonography of Right and Left Heart, Transesophageal (ICD-10-PCS; 2017-12-29)
PROC: 02100Z9 Bypass Coronary Artery, One Artery from Left Internal Mammary, Open Approach (ICD-10-PCS; principal; 2017-12-29 07:30)
PROC: 0JH606Z Insertion of Pacemaker, Dual Chamber into Chest Subcutaneous Tissue and Fascia, Open Approach (ICD-10-PCS; 2018-01-05)
PROC: 02H63JZ Insertion of Pacemaker Lead into Right Atrium, Percutaneous Approach (ICD-10-PCS; 2018-01-05)
PROC: 02HK3JZ Insertion of Pacemaker Lead into Right Ventricle, Percutaneous Approach (ICD-10-PCS; 2018-01-05)
DX: I35.0 Nonrheumatic aortic (valve) stenosis (principal); I44.2 Atrioventricular block, complete; N17.9 Acute kidney failure, unspecified; E87.2 Acidosis; N18.3 Chronic kidney disease, stage 3 (moderate); I24.0 Acute coronary thrombosis not resulting in myocardial infarction; D68.69 Other thrombophilia; E87.1 Hypo-osmolality and hyponatremia; E11.21 Type 2 diabetes mellitus with diabetic nephropathy; E11.22 Type 2 diabetes mellitus with diabetic chronic kidney disease; D64.9 Anemia, unspecified; E78.5 Hyperlipidemia, unspecified; E87.5 Hyperkalemia; E87.8 Other disorders of electrolyte and fluid balance, not elsewhere classified; F32.9 Major depressive disorder, single episode, unspecified; I12.9 Hypertensive chronic kidney disease with stage 1 through stage 4 chronic kidney disease, or unspecified chronic kidney disease; I25.10 Atherosclerotic heart disease of native coronary artery without angina pectoris; I25.82 Chronic total occlusion of coronary artery; I48.0 Paroxysmal atrial fibrillation; Z96.642 Presence of left artificial hip joint; Z96.652 Presence of left artificial knee joint; I70.0 Atherosclerosis of aorta; I80.8 Phlebitis and thrombophlebitis of other sites; K21.9 Gastro-esophageal reflux disease without esophagitis; K52.9 Noninfective gastroenteritis and colitis, unspecified; Z79.01 Long term (current) use of anticoagulants; Z79.4 Long term (current) use of insulin; Z86.72 Personal history of thrombophlebitis; Z87.891 Personal history of nicotine dependence; Z90.710 Acquired absence of both cervix and uterus; Z79.82 Long term (current) use of aspirin
CPT/HCPCS: 33208; 36415; 36600; 71045; 71046; 80048; 80053; 81001; 81003; 82040; 82330; 82800; 82803; 82810; 82947; 82962; 83036; 83735; 83880; 84132; 84145; 84295; 85014; 85018; 85025; 85049; 85347; 85610; 85730; 86850; 86900; 86923; 87040; 87081; 87324; 87400; 88305; 88311; 93005; 93312; 93321; 93325; 93880; 93970; 93971; 94002; 94150; 99156; 99157; C1768; C1779; C1785; J0690; J0696; J0697; J1644; J1815; J1940; J2250; J2405; J2704; J2720; J3010; J3370; J3475; J3480; J3490; P9045; P9047; C1751; C1760; J0171; J0282; J2270; J2370; J2440; J2930; J7040; J7050; J7060; J7120

== ENCOUNTER → 2018-01-23 | Outpatient (CLI) | payer OTHER ==
[~2018-01-23] MED LIST changes: +AMIO200T42 PO; +CARV25TA12 PO; +DOCU-131 PO; +HYDR-3237 PO; +INSU100I13 SQ; +INSU100V8 SQ; +SODI650T PO; +WARF3TAB PO-COUM
[2018-01-23 15:36] LABS: BASOPHILS # (AUTO) 0.06 x10^3/uL (0-0.1); BASOPHILS % (AUTO) 1 % (0-1); EOSINOPHILS # (AUTO) 0.72 x10^3/uL (0-0.4); EOSINOPHILS % (AUTO) 6 % (1-7); LYMPHOCYTES # (AUTO) 1.44 x10^3/uL (1-3.4); LYMPHOCYTES % (AUTO) 12 % (22-44); MD NO; MEAN CORPUSCULAR HEMOGLOBIN 26.4 pg (27.0-34.8); MEAN CORPUSCULAR HGB CONC 32.2 g/dL (32.4-35.8); MEAN CORPUSCULAR VOLUME 82.2 fL (80-100); MEAN PLATELET VOLUME 8.4 fL (7.4-10.4); MONOCYTES # (AUTO) 0.79 x10^3/uL (0.2-0.8); MONOCYTES % (AUTO) 6 % (2-9); NEUTROPHILS # (AUTO) 9.33 x10^3/uL (1.8-6.8); NEUTROPHILS % (AUTO) 76 % (42-75); PLATELET COUNT 459 x10^3/uL (130-400); RED BLOOD COUNT 3.98 x10^6/uL (3.82-5.3); RED CELL DISTRIBUTION WIDTH 16.1 % (9.6-15.2)
[2018-01-23 15:54] LABS: ANION GAP 9 mmol/L (5-15); CALCIUM 8.8 mg/dL (8.5-10.1); CHLORIDE 109 mmol/L (98-107)
[2018-01-23 15:59] LABS: CREATININE 1.14 mg/dL (0.55-1.02)
== END ==
LOC: CFH 14:48
PROVIDERS: ATTEND Internal Medicine Cardiovascular Disease
DX: J90 Pleural effusion, not elsewhere classified (principal); J98.11 Atelectasis; K57.32 Diverticulitis of large intestine without perforation or abscess without bleeding; Z95.0 Presence of cardiac pacemaker
CPT/HCPCS: 36415; 71046; 80048; 83880; 85025